=== PATIENT | male | born 1985 | race African-American/Black ===

== ENCOUNTER 2022-06-15 17:22 | Emergency (ER) | payer OTHER ==
[2022-06-15 17:45] VITALS: BMI 37.5
[2022-06-15] MEDS ORDERED: FAMOTIDINE 20 MG TABLET PO ONE (17:53)
[2022-06-15] MEDS ORDERED: ONDANSETRON 4 MG TABLET PO ONE (17:53)
[2022-06-15] MEDS ORDERED: ACETAMINOPHEN 500 MG TABLET (FP) PO ONE (17:54)
[2022-06-15] MEDS ORDERED: ALBUTEROL SO4 2.5/IPRATROPIUM 0.5 INH SOL 3 ML VIAL.NEB. NEB ONE (17:59)
[2022-06-15] MEDS ORDERED: FAMOTIDINE 20 MG TABLET ONE (17:59)
[2022-06-15] MEDS ORDERED: ONDANSETRON *ODT* 4 MG TABLET ONE (18:00)
[2022-06-15] MEDS: ALBUTEROL SO4 2.5/IPRATROPIUM 0.5 INH SOL 3 ML VIAL.NEB. NEB SCH ×2 (18:00→18:14)
[2022-06-15] MEDS ORDERED: HYDROCHLOROTHIAZIDE 25 MG TABLET (FP) PO ONE (18:06)
[2022-06-15] MEDS ORDERED: HYDROCHLOROTHIAZIDE 25 MG TABLET (FP) ONE (18:16)
[2022-06-15 19:09] LABS: ALBUMIN 3.9 g/dl (3.4-5.0); BLOOD UREA NITROGEN 10.8 mg/dL (7-18); CALCIUM 9.4 mg/dL (8.5-10.1)
[2022-06-15 19:13] LABS: BILIRUBIN,TOTAL 0.8 mg/dL (0.2-1); TOT PROT 7.6 g/dl (6.4-8.2)
[2022-06-15] MEDS ORDERED: methylPREDNISolone NA SUCC 125 MG/2 ML VIAL IVPUSH ONE (19:36)
[2022-06-15] MEDS ORDERED: methylPREDNISolone NA SUCC 125 MG/2 ML VIAL ONE (19:40)
[2022-06-15 19:56] LABS: BASO % 0.4 % (0-2.0); EOS % 0.1 % (0-4.5); HEMOGLOBIN 12.3 GM/dL (11.7-16.9); LYMPH % 7.7 % (8-40); MCH 27.7 pg (25.7-33.7); MCHC 32.4 g/dl (32.0-35.9); MEAN CELL VOLUME 85.3 fl (80-96); MEAN PLT VOLUME 9.2 fl (7.5-11.1); MONO % 5.5 % (3.8-10.2); NEUT % 86.3 % (42.8-82.8); RBC 4.45 M/mm3 (4.00-5.60); RDW 13.7 % (11.9-15.9); WHITE BLOOD COUNT 9.4 K/mm3 (4.0-10.0)
[2022-06-15 19:58] LABS: PLATELET COUNT 285 10^3/uL (134-434)
[2022-06-15 20:00] VITALS: RESP 15; TEMP 98.5
[2022-06-15] MEDS ORDERED: guaiFENesin 200 MG/10 ML 10 ML UNIT-DOSE CUPS PO ONE (20:15)
[2022-06-15] MEDS ORDERED: guaiFENesin 200 MG/10 ML 10 ML UNIT-DOSE CUPS ONE (20:46)
[2022-06-15] MEDS ORDERED: ALBUTEROL SO4 0.083% IH SOL 2.5 MG/3 ML VIAL.NEB. NEB ONE ×2 (20:50→21:27)
[2022-06-15 21:34] VITALS: BP 156/90; PULSE 77
== END 2022-06-15 22:24 | disposition admitted as inpatient to this hospital (09) ==
LOC: JER 17:22
PROC: 3E0F7GC Introduction of Other Therapeutic Substance into Respiratory Tract, Via Natural or Artificial Opening (ICD-10-PCS; principal; 2022-06-15)
PROC: 3E033GC Introduction of Other Therapeutic Substance into Peripheral Vein, Percutaneous Approach (ICD-10-PCS; 2022-06-15)
DX: R06.2 Wheezing (principal); R09.02 Hypoxemia; J45.901 Unspecified asthma with (acute) exacerbation
CPT/HCPCS: 0241U-QW; 36415; 71046-TC-FY; 76604; 80053; 84484; 85025; 85379; 93005; 93010; 99285-25

== ENCOUNTER 2023-12-08 12:42 | Emergency (ER) | payer OTHER ==
[2023-12-08 13:14] VITALS: RESP 18; TEMP 98.5; BMI 43.7
[2023-12-08] MEDS ORDERED: ACETAMINOPHEN INJECTION 100 ML IVPB ONE (14:08)
[2023-12-08] MEDS ORDERED: ONDANSETRON 4 MG/2 ML VIAL ONE (14:08)
[2023-12-08 14:15] LABS: BASO % 0.2 % (0-2.0); EOS % 0.8 % (0-4.5); HEMATOCRIT 42.5 % (35.4-49); HEMOGLOBIN 13.7 GM/dL (11.7-16.9); LYMPH % 5.8 % (8-40); MCH 27.3 pg (25.7-33.7); MCHC 32.2 g/dl (32.0-35.9); MEAN CELL VOLUME 84.9 fl (80-96); MEAN PLT VOLUME 8.2 fl (7.5-11.1); MONO % 4.2 % (3.8-10.2); PLATELET COUNT 289 10^3/uL (134-434); RBC 5.01 M/mm3 (4.00-5.60); RDW 13.7 % (11.9-15.9); WHITE BLOOD COUNT 8.9 K/mm3 (4.0-10.0)
[2023-12-08] MEDS: ONDANSETRON 4 MG/2 ML VIAL IVPUSH ONE (14:15)
[2023-12-08] MEDS: LACTATED RINGERS SOLUTION 1000 ML INFUS.BAG IV ONE (14:15)
[2023-12-08] MEDS: ACETAMINOPHEN 1000 MG/100 ML BAG IVPB ONE (14:15)
[2023-12-08 14:37] LABS: POTASSIUM 4.2 mmol/L (3.5-5.1)
[2023-12-08 14:39] LABS: ALBUMIN 3.8 g/dl (3.4-5.0); BLOOD UREA NITROGEN 11.9 mg/dL (7-18); CALCIUM 9.5 mg/dL (8.5-10.1); MAGNESIUM 2.1 mg/dL (1.8-2.4)
[2023-12-08 14:41] LABS: CREATININE 0.9 mg/dL (0.55-1.3)
[2023-12-08 14:44] LABS: BILIRUBIN,TOTAL 0.7 mg/dL (0.2-1); TOT PROT 7.8 g/dl (6.4-8.2)
[2023-12-08 15:15] VITALS: BP 179/100; PULSE 64
[2023-12-08] MEDS ORDERED: HYDROCHLOROTHIAZIDE 25 MG TABLET (FP) ONE (15:25)
[2023-12-08] MEDS: HYDROCHLOROTHIAZIDE 25 MG TABLET (FP) PO ONE (15:32)
== END 2023-12-08 15:48 | disposition home or self-care (01) ==
LOC: JER 12:42
PROC: 3E033NZ Introduction of Analgesics, Hypnotics, Sedatives into Peripheral Vein, Percutaneous Approach (ICD-10-PCS; principal; 2023-12-08)
PROC: 3E033GC Introduction of Other Therapeutic Substance into Peripheral Vein, Percutaneous Approach (ICD-10-PCS; 2023-12-08)
DX: R10.13 Epigastric pain (principal); R11.2 Nausea with vomiting, unspecified; R19.7 Diarrhea, unspecified; I10 Essential (primary) hypertension; Z20.822 Contact with and (suspected) exposure to COVID-19
CPT/HCPCS: 0241U-QW; 36415; 80053; 83690; 83735; 85025; 93005; 93010; 99284-25; J0131